=== PATIENT | female | born 1985 | race Hispanic/Latino ===

== ENCOUNTER 2020-05-25 01:18 | Inpatient (IN) | payer BC, SELFPAY ==
[2020-05-25] VITALS (13 sets, daily range): BP systolic 106–138; BP diastolic 62–88; PULSE 98–120; RESP 18–31; TEMP 36.1–37.4; O2SAT 88–98; BMI 39.5
--- NOTE | ~2020-05-25 | XR_ITS ---
EXAMINATION: XR chest 1V portable DATE: 05/25/2020 02:01 INDICATION: Asthma and pneumonia TECHNIQUE: frontal view of the chest was obtained. COMPARISON: Chest CT dated 08/17/2014 FINDINGS: Small lung volumes. Confluent airspace opacity in the right upper lobe concerning for pneumonia. Gary tional mild opacities at the bilateral lung bases could represent additional pneumonia or atelectasis . The cardiomediastinal silhouette is normal. Visualized bones and soft tissues are unremarkable. IMPRESSION: 1. Right upper lobe consolidation concerning for pneumonia. 2. Additional mild bibasilar opacities which could represent additional pneumonia or atelectasis. Reviewed, dictated and finalized at location A. IMPRESSION: 1. Right upper lobe consolidation concerning for pneumonia. 2. Additional mild bibasilar opacities which could represent additional pneumon ia or atelectasis.
--- NOTE | 2020-05-25 01:32 | ECG_ITS ---
Measurements Intervals [place] Rate: 112 P: 1 NV: 130 QRS: 16 QRSD: 76 T: 10 QT: 337 QTc: 462 Interpretive Statements SINUS TACHYCARDIA NONSPECIFIC T-WAVE ABNORMALITY- INF/LAT LEADS ABNORMAL ECG Electronically Signed On 05-25-2020 8:11:20 CDT by Steven Mcginnis D.O.
[2020-05-25 01:59] LABS: Basophils Percent Auto 0.2 % (0.2-1.2); Eosinophils Percent Auto 0.2 % (0-4.4); Hematocrit 46.3 % (37.0-47.0); Immature Granulocyte Absolute 0.02 K/mm3 (0.00-0.031); Immature Granulocyte Percent A 0.4 % (0-0.5); Lymphocytes Absolute Auto 1.42 K/mm3 (0.9-3.2); Lymphocytes Percent Auto 27.4 % (18.3-44.2); Mean Corpuscular HGB Conc 32.4 g/dl (32-36); Mean Corpuscular Hemoglobin 27.9 pg (26-34); Mean Corpuscular Volume 86.1 fl (80-100); Mean Platelet Volume 11.8 fl (7.4-10.4); Monocytes Absolute Auto 0.3 K/mm3 (0.1-0.6); Neutrophils Absolute Auto 3.5 K/mm3 (1.3-6.7); Neutrophils Percent Auto 66.8 % (45.5-73.1); Platelet Count Result 154 k/mm3 (150-375); Red Blood Count 5.38 M/mm3 (4.2-5.4); Red Cell Distribution Width 12.5 % (11.5-14.5); White Blood Count 5.2 K/mm3 (4.5-10.0)
--- NOTE | 2020-05-25 02:06 | ED.SOB ---
HPI - SOB/Dyspnea General Chief Complaint: Shortness of Breath/Dyspnea Stated Complaint: COVID +, SOB Time Seen by Provider: 05/25/20 01:40 Source: patient Mode of arrival: ambulatory Limitations: no limitations History of Present Illness HPI Narrative: This patient is a 34 year old female who presents for evaluation of cough and shortness of breath. Patient developed symptoms on Wednesday . She states she has had diarrhea, body aches, cough and low grade fever since Wednesday. She tested positive for COVID on Wednesday. Tonight her cough has continued to worsen. She was having sob when she tried to lay down to sleep. She has pain in her chest only when she coughs. Related Data Home Medications Medication Instructions Recorded Confirmed No Home Medications 05/25/20 05/25/20 Allergies Allergy/AdvReac Type Severity Reaction Status Date / Time No Known Allergies Allergy Verified 05/25/20 01:53 Review of Systems Review of Systems: All systems reviewed & are unremarkable except as noted in HPI and below Constitutional: Constitutional: Reports chills, Reports fever(s) and Reports weakness ENT: Denies sore throat Cardiovascular: Cardiovascular: Reports chest pain (from coughing) Respiratory: Respiratory: Reports cough, Reports dyspnea and Denies wheezing Gastrointestinal: Gastrointestinal: Denies abdominal pain, Reports diarrhea, Reports nausea and Denies vomiting Endocrine: Endocrine: Reports fatigue PMFSH Past Medical History Medical History (Updated 05/25/20 @ 03:33 by Sita Pulido MD) Asthma Social History Social History Smoking status: Never smoker Second hand tobacco smoke exposure: No Alcohol intake: current Drinks per week: 0 Substance use: never Substance use type: does not use Gender identity (if verbalized by the patient): Female Sexual Orientation (if Verbalized by the Patient): Straight or Heterosexual Spiritual care concerns: No Exam Const: General: no acute distress, alert and ill appearing acutely Orientation/consciousness: patient oriented x3 HENMT: Head: normocephalic and atraumatic Eyes: EOM: EOMs intact bilaterally Neck: Neck: normal visual inspection Chest: Chest palpation & inspection: normal inspection of the chest Resp: Effort & Inspection: normal respiratory effort Auscultation: clear to auscultation bilaterally and diminished lung sounds Cardio: Rate: tachycardic Rhythm: regular rhythm Heart sounds: no murmurs GI: GI Palp: Yes Soft to palpation, No Tenderness to palpation present (GI), No Guarding due to palpation present (GI) and No Rigid due to palpation Back/Spine/Pelvis: Back: no CVA tenderness Skin: General skin exam: normal color Rashes: no rashes Neuro: General: patient oriented x3 and moves all extremities Course Consultations Consultation #1: He is accepts patient for admission to the medical floor. Dr. Leal Date: 05/25/20 Vital Signs Vital signs: Vital Signs Temperature 98.1 F 05/25/20 01:22 Pulse Rate 120 H 05/25/20 01:22 Respiratory Rate 25 H 05/25/20 01:22 Blood Pressure 138/77 05/25/20 01:22 Pulse Oximetry 91 05/25/20 01:22 Temperature 98.9 F 05/25/20 04:00 Pulse Rate 101 H 05/25/20 04:00 Respiratory Rate 28 H 05/25/20 04:00 Blood Pressure 118/73 05/25/20 04:00 Pulse Oximetry 98 05/25/20 04:00 MDM - SOB/Dyspnea Lab Data Attestation: I reviewed the patient's lab results. Result diagrams: 05/25/20 01:48 05/25/20 01:48 Labs: Lab Results 05/25/20 05/25/20 05/25/20 Range/Units 01:48 01:48 01:48 WBC 5.2 (4.5-10.0) K/mm3 RBC 5.38 (4.2-5.4) M/mm3 Hgb 15.0 (12.0-15.0) g/dL Hct 46.3 (37.0-47.0) % MCV 86.1 (80-100) fl MCH 27.9 (26-34) pg MCHC 32.4 (32-36) g/dl RDW 12.5 (11.5-14.5) % Plt Count 154 (150-375) k/mm3 MPV 11.8 H (7.4-10.4) fl Immature Gran % (Auto) 0.4 (0-0.5) % Neut % (
[2020-05-25 02:08] LABS: INR 0.9; Partial Thromboplastin Time 30.8 SECONDS (22.3-36.8); Prothrombin Time 12.2 Seconds (11.1-14.7)
[2020-05-25 02:11] LABS: Alanine Aminotransferase 96 U/L (4-35); Albumin Level 4.3 g/dL (3.5-5.1); Alkaline Phosphatase 62 U/L (38-126); Aspartate Amino Transferase 93 U/L (14-36); Bilirubin,Total 0.6 mg/dL (0.2-1.3); D Dimer 0.44 ug/mL (<0.48); Magnesium 1.6 mg/dL (1.6-2.3)
[2020-05-25 02:12] LABS: Blood Urea Nitrogen 8 mg/dL (7-17); Calcium 8.3 mg/dL (8.4-10.2); Carbon Dioxide 28 mmol/L (22-30); Chloride 96 mmol/L (98-107); Estimated CRCL calculation 141 ml/min; Estimated Glomerular Filt Rate > 60; Glucose 147 mg/dL (65-105); Potassium 3.5 mmol/L (3.4-5.0); Sodium 134 mmol/L (137-145)
[2020-05-25 02:13] LABS: Lactate Dehydrogenase 804 U/L (313-618)
[2020-05-25 02:17] LABS: Alveolar/Arterial O2 Gradient 44.6 mmHg; Base Excess ABG 3.3 mEq/l (+/-2.0); Fractional Inspired Oxygen 21 %; HCO3 ABG 26.7 mEq/l (22.0-26.0); Methemoglobin ABG 0.2 %THb (0-1.5); Oxygen Content ABG 18.6 %vol (16.0-22.0); Oxygen Saturation ABG 93.1 % (95.0-100.0); Oxyhemoglobin 90.7 % THb (90.0-100.0); PCO2 ABG 36.8 mmHg (35.0-45.0); PO2 ABG 61.1 mmHg (80.0-100.0); PO2 FiO2 Ratio Arterial Blood 2.91 %; Reduced Hemoglobin 8.1 %THb (0-5.0); Total Hemoglobin 14.6 g/dL (12.0-18.0); pH ABG 7.478 (7.350-7.450)
[2020-05-25 02:20] LABS: Device ROOM AIR; Modified Allen's Test Pass; Site Drawn LEFT RADIAL
[2020-05-25 02:21] LABS: NT Pro B Type Natriuretic Pept 20 PG/ML (5-100)
--- NOTE | 2020-05-25 02:23 | PC.NURSE ---
Assumed care of pt at this time. Report from OMER Buenrostro
--- NOTE | 2020-05-25 04:16 | ADMGEN ---
This patient, Nelida Payne, was admitted to [facility] Surg Room 330-01. Patient/family oriented to hospital policies and general routines including ID bracelet, bed and alarms, visiting hours, pain management, procedures, bathroom and other care routines, personal items, smoking policy, room service/diet, and visiting hours. Valuables list has been completed. Information on how to activate the Rapid Response Team has been discussed. Patient/Family are encouraged to report perceived risks to care and to ask questions if they do not understand what they are told or what they should do.
[2020-05-25] MEDS: SODIUM CHLORIDE 0.9% IV 1,000 ML 125 ML IV CONT (04:35)
[2020-05-25] MEDS: guaiFENesin 12 HR 600 MG TABCR PO (09:47)
[2020-05-25] MEDS: ENOXAPARIN 40 MG/0.4 ML SYRINGE SUB-Q (09:47)
[2020-05-25 13:02] LABS: Basophils Percent Auto 0.3 % (0.2-1.2); Eosinophils Percent Auto 0.3 % (0-4.4); Hematocrit 43.6 % (37.0-47.0); Hemoglobin 14.1 g/dL (12.0-15.0); Immature Granulocyte Absolute 0.02 K/mm3 (0.00-0.031); Immature Granulocyte Percent A 0.5 % (0-0.5); Immature Platelet Fraction Pct 5.6 % (0.9-11.2); Lymphocytes Absolute Auto 1.53 K/mm3 (0.9-3.2); Lymphocytes Percent Auto 39.7 % (18.3-44.2); Mean Corpuscular HGB Conc 32.3 g/dl (32-36); Mean Corpuscular Hemoglobin 28.4 pg (26-34); Mean Corpuscular Volume 87.7 fl (80-100); Mean Platelet Volume 11.8 fl (7.4-10.4); Monocytes Absolute Auto 0.2 K/mm3 (0.1-0.6); Monocytes Percent Auto 5.2 % (2.6-8.5); Neutrophils Absolute Auto 2.1 K/mm3 (1.3-6.7); Platelet Count Result 145 k/mm3 (150-375); Red Blood Count 4.97 M/mm3 (4.2-5.4); Red Cell Distribution Width 12.7 % (11.5-14.5); White Blood Count 3.9 K/mm3 (4.5-10.0)
[2020-05-25 13:17] LABS: Creatine Kinase 496 U/L (30-135)
[2020-05-25 13:18] LABS: Lactate Dehydrogenase 778 U/L (313-618)
[2020-05-25 13:21] LABS: Alanine Aminotransferase 84 U/L (4-35); Albumin Level 3.8 g/dL (3.5-5.1); Alkaline Phosphatase 53 U/L (38-126); Aspartate Amino Transferase 86 U/L (14-36); Bilirubin,Total 0.5 mg/dL (0.2-1.3); Blood Urea Nitrogen 7 mg/dL (7-17); CRP 1.3 mg/dL (<1.0); Calcium 8.2 mg/dL (8.4-10.2); Carbon Dioxide 30 mmol/L (22-30); Chloride 100 mmol/L (98-107); Estimated CRCL calculation 125 ml/min; Estimated Glomerular Filt Rate > 60; Glucose 154 mg/dL (65-105); Magnesium 1.9 mg/dL (1.6-2.3); Potassium 3.6 mmol/L (3.4-5.0); Sodium 136 mmol/L (137-145)
[2020-05-25 14:19] LABS: Hepatitis B Surface Antigen Negative (Negative)
[2020-05-25 14:25] LABS: HAV RESULT Negative (Negative); Hepatitis B Core IgM Result Negative (Negative)
[2020-05-25 14:34] LABS: Vitamin D 25 Hydroxy 46.2 ng/mL
[2020-05-25 14:36] LABS: Hepatitis C Virus Antibody Negative (Negative)
--- NOTE | 2020-05-25 15:28 | PM.IMHP ---
H&P: HPI History of Present Illness Chief complaint: COVID, pneumonia Narrative: Nelida Payne is a 34 year old female with PMH significant for mild asthma and PCOS who presented to the emergency department for the evaluation of cough. She reports dyspnea only during her coughing episodes. She developed fever, diarrhea, nausea, myalgias, impaired sense of taste, and weakness last Wednesday (05/18/20). She tested positive for COVID Wednesday (05/20/20). 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 She reports that overall, her sx improved, however she developed a dry cough 3 days ago. The cough was worsening and she was having difficulty sleeping so she proceeded to the ED for further evaluation. She denies shortness of breath and chest pain. She denies nausea, vomiting, abdominal pain, and diarrhea. Her last fever was yesterday afternoon at 101.1F. Initial workup in the ED revealed WBC 5,200, Hb 15, Hct 46.3, platelets 154, ABG with pH 7.478, pCO2 36.8, pO2 61.1, and HCO3 26.7, sodium 134, potassium 3.5, chloride 96, CO2 28, BUN 8, Cr 0.5, glucose 147, lactic acid 1.0, magnesium 1.6, ferritin 1230, AST 93, ALT 96, ALP 62, LDH 804, BNP 20. EKG revealed sinus tachycardia and non-specific T wave abnormality in the inferior/lateral leads. CXR revealed right upper lobe consolidation and bibasilar opacities. Oxygen saturation was 91% so she was placed on 2L per nasal cannula and admitted to the hospitalist service. At the time of my evaluation, she reports that she is feeling fine. Her primary complaint is her dry cough. She also notes mild nausea but has no other complaints at this time. Overall, she is feeling better from when her symptoms began. Review of Systems Review of Systems: Narrative: Constitutional: Reports fever yesterday which has resolved today. Reports generalized fatigue. Reports lack of taste. Eyes: Denies vision change. No additional eye complaints. ENT: Denies change in hearing, nasal congestion, dysphagia, odynophagia, and sore throat. Cardiovascular: Denies palpitations and chest pain. Denies PND and orthopnea. Denies dyspnea on exertion. Respiratory: Reports dry cough. Denies shortness of breath. Gastrointestinal: Reports mild nausea. Denies nausea, vomiting, diarrhea, and constipation. Deneis melena and hematochezia. Genitourinary: Denies dysuria, frequency, urgency, and hesitancy. Musculoskeletal: Denies joint pain and swelling. Denies myalgias. Skin: Denies lesions and wounds. Neurologic: Denies focal weakness, paresthesias, confusion, and speech change. Psychiatric: Denies mood change. Denies anxiety and depression. Hematologic: Denies easy bruising and bleeding. All systems reviewed & are unremarkable except as noted in HPI and below PMFSH Past Medical History Medical History Asthma Polycystic kidney disease Surgical History Surgical History [place] teeth extracted Family History Family History (Updated 05/25/20 @ 16:52 by Elodia Menjivar PA-C) Father Hypertension Mother Hypertension Grandparent Family history of type 2 diabetes mellitus Cancer Other Family history of malignant neoplasm of breast Social History Social History (Updated 05/25/20 @ 16:55 by Elodia Menjivar PA-C) Social History: Mrs. Payne lives at home with her Facundo Payne. They live in [place], [place]. 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 She has a hx of infrequent alcohol use but has not consumed alcohol this year. She does not use any drugs. She wishes to be a full code and she has designated her Facundo Payne as her surrogate decision maker. Smoking status: Never smoker Second hand tobacco smoke exposure: No Alcohol intake: current Drinks per week: 0 Alcohol use details: She reports 1 drink/month previously but has not consumed alcohol i
[2020-05-26] VITALS (10 sets, daily range): BP systolic 111–121; BP diastolic 69–75; PULSE 88–119; RESP 18–20; TEMP 36.3–36.7; O2SAT 87–94
[2020-05-26 06:07] LABS: Basophils Percent Auto 0.4 % (0.2-1.2); Eosinophils Percent Auto 0.6 % (0-4.4); Hematocrit 42.1 % (37.0-47.0); Hemoglobin 13.5 g/dL (12.0-15.0); Immature Granulocyte Absolute 0.03 K/mm3 (0.00-0.031); Immature Granulocyte Percent A 0.6 % (0-0.5); Lymphocytes Absolute Auto 1.86 K/mm3 (0.9-3.2); Lymphocytes Percent Auto 36.3 % (18.3-44.2); Mean Corpuscular HGB Conc 32.1 g/dl (32-36); Mean Corpuscular Hemoglobin 28.2 pg (26-34); Mean Corpuscular Volume 87.9 fl (80-100); Mean Platelet Volume 11.6 fl (7.4-10.4); Monocytes Absolute Auto 0.4 K/mm3 (0.1-0.6); Neutrophils Absolute Auto 2.8 K/mm3 (1.3-6.7); Neutrophils Percent Auto 55.1 % (45.5-73.1); Platelet Count Result 148 k/mm3 (150-375); Red Blood Count 4.79 M/mm3 (4.2-5.4); Red Cell Distribution Width 12.7 % (11.5-14.5); White Blood Count 5.1 K/mm3 (4.5-10.0)
[2020-05-26 06:18] LABS: Alanine Aminotransferase 91 U/L (4-35); Albumin Level 3.8 g/dL (3.5-5.1); Alkaline Phosphatase 58 U/L (38-126); Aspartate Amino Transferase 82 U/L (14-36); Bilirubin,Total 0.7 mg/dL (0.2-1.3); Blood Urea Nitrogen 7 mg/dL (7-17); Calcium 8.1 mg/dL (8.4-10.2); Carbon Dioxide 31 mmol/L (22-30); Chloride 97 mmol/L (98-107); Estimated CRCL calculation 125 ml/min; Estimated Glomerular Filt Rate > 60; Glucose 150 mg/dL (65-105); Potassium 3.7 mmol/L (3.4-5.0); Sodium 134 mmol/L (137-145)
[2020-05-26 07:50] LABS: Creatine Kinase 648 U/L (30-135)
[2020-05-26 07:58] LABS: CRP 1.3 mg/dL (<1.0)
[2020-05-26] MEDS: ENOXAPARIN 40 MG/0.4 ML SYRINGE SUB-Q (08:42)
[2020-05-26 08:50] LABS: Lactate Dehydrogenase 791 U/L (313-618)
--- NOTE | 2020-05-26 14:43 | HOMEO2EVAL ---
Home Oxygen Evaluation RC: Home Oxygen (O2) Evaluation Start: 05/26/20 11:36 Freq: ONCE Status: Active Protocol: RPE Activity Type Activity Date Activity User E-Sign Co-Sign Detail Recorded Client Recorded Date Recorded By Document 05/26/20 14:20 [email or web address] [email or web address] 05/26/20 14:43 KRM Document 05/26/20 14:22 [email or web address] [email or web address] 05/26/20 14:43 KRM Document 05/26/20 14:24 [email or web address] [email or web address] 05/26/20 14:43 KRM Document 05/26/20 14:26 [email or web address] [email or web address] 05/26/20 14:43 KRM Document 05/26/20 14:32 [email or web address] [email or web address] 05/26/20 14:43 KRM 05/26/20 05/26/20 05/26/20 14:20 14:22 14:24 Home O2 Evaluation Test Phase Resting Exercise Exercise Oxygen Delivery Room Air Room Air Nasal Cannula Oxygen Flow Rate (L/min) 1 Pulse Oximetry (90-100 %) 90 87 L 89 L Pulse Rate (60-100 beats/min) 91 119 H 101 H Activity Tolerance Good Good Ambulation Distance (feet) Home Oxygen Evaluation Comments Treatment Charges O2 Evaluation 05/26/20 05/26/20 14:26 14:32 Home O2 Evaluation Test Phase Exercise Resting Oxygen Delivery Nasal Cannula Room Air Oxygen Flow Rate (L/min) 2 Pulse Oximetry (90-100 %) 91 92 Pulse Rate (60-100 beats/min) 102 H 90 Activity Tolerance Good Ambulation Distance (feet) 50 Home Oxygen Evaluation Comments 2 LPM WITH ACTIVITY. Treatment Charges
--- NOTE | 2020-05-26 14:45 | PCRCNOTE ---
HOME O2 EVALUATION COMPLETE. PT. REQUIRES 2LPM WITH ACTIVITY. PT. [facility].
--- NOTE | 2020-05-26 15:26 | PM.DS ---
DS: Admitting Diagnosis Admitting Diagnosis Admitting Diagnosis: Acute respiratory failure with hypoxia DS: Discharge Diagnosis Discharge Diagnosis (1) Acute respiratory failure with hypoxia: Code(s): J96.01 - Acute respiratory failure with hypoxia Status: Acute (2) COVID-19: Code(s): U07.1 - COVID-19 Status: Acute (3) Pneumonia: Code(s): J18.9 - Pneumonia, unspecified organism Status: Acute (4) Elevated fasting blood sugar: Code(s): R73.01 - Impaired fasting glucose Status: Acute Assessment and Plan: Fasting blood sugar was 154. Hemoglobin A1c was 7.0. She will need to implement lifestyle modification and follow-up with her PCP to discuss pharmacotherapy. DS: Summary Hospital Course Reason for hospitalization: Cough, dyspnea, COVID-19 Hospital Course: Nelida Payne is a 34 year old female with PMH significant for mild asthma and PCOS who tested positive for COVID-19 05/20/20 who presented to the emergency department for the evaluation of cough and dyspnea during her coughing episodes. She reported the onset of fever, diarrhea, nausea, myalgias, impaired sense of taste, and weakness on 05/18/20. Those sx were improving but she reported a dry cough for three days. The cough was worsening and she was having difficulty sleeping so she proceeded to the ED for further evaluation. Initial workup in the ED revealed WBC 5,200, Hb 15, Hct 46.3, platelets 154, ABG with pH 7.478, pCO2 36.8, pO2 61.1, and HCO3 26.7, sodium 134, potassium 3.5, chloride 96, CO2 28, BUN 8, Cr 0.5, glucose 147, lactic acid 1.0, magnesium 1.6, ferritin 1230, AST 93, ALT 96, ALP 62, LDH 804, BNP 20. EKG revealed sinus tachycardia and non-specific T wave abnormality in the inferior/lateral leads. CXR revealed right upper lobe consolidation and bibasilar opacities. Oxygen saturation was 91% so she was placed on 2L per nasal cannula and admitted to the hospitalist service. She was treated with supportive care. She weaned to room air at rest. Her symptoms improved and she requested to go home. A home oxygen evaluation was performed which indicated that she required 2 liters per nasal cannula with exertion. She was discharged with home oxygen and advised to schedule a follow-up visit with primary care within 1 week. Fasting glucose was elevated so hemoglobin A1c was ordered and was elevated at 7. She will need to implement lifestyle interventions and follow-up with her PCP to discuss pharmacotherapy. She was discharged in stable condition on the afternoon of 05/26/20. She was advised to return to the ED for worsening symptoms. Status at Discharge Functional status at discharge: independent ambulation Overall status at discharge: patient is progressing back to baseline Time Spent with Patient Time attestation: Total time spent providing and/or coordinating discharge services: 35 minutes Exam Narrative: Exam Narrative: General: Pleasant, obese, and well-developed 34 y.o. female sitting in bed in no acute distress. HEENT: Normocephalic and atraumatic. Conjunctivae and lids normal. EOMI. Moist mucous membranes. Neck: Large neck circumference. Supple without lymphadenopathy or masses. Cardiac: Regular rate and rhythm. S1 and S2 normal. Telemetry reviewed from 05/26/20 with sinus rhythm. Lungs: On room air and comfortable. Respirations are non-labored. She is speaking in full sentences without difficulty. Breath sounds are diminished bilaterally. Abdomen: Normoactive bowel sounds. Soft, non-distended, and non-tender. Extremities: No lower extremity edema. Johnny sign negative. Neurological: Alert and oriented x3. Exam non-focal to casual conversation. Speech clear. Skin: Warm and dry. Psychiatric: Judgment and insight intact. Mood and affect appropriate. DS: Data Data Completed and Pending Labs on day of discharge: Labs from last 24 hours 05/26/20 05/26/20 05/26/20 07:57 07:52 05:58 WBC RBC Hgb Hc
[2020-05-27 20:45] LABS: SARS-CoV-2 RNA PCR Positive
== END 2020-05-26 16:00 | disposition home or self-care (01) | DRG 177 ==
LOC: ANHED 03:00 → ANH3MEDSUR 03:02
PROVIDERS: Physician Assistant; Admitting Provider Family Medicine; Emergency Provider General Practice; Visit Provider Family Medicine
DX: U07.1 COVID-19 (principal); J12.89 Other viral pneumonia; J96.01 Acute respiratory failure with hypoxia; Q61.3 Polycystic kidney, unspecified; R73.01 Impaired fasting glucose; J45.909 Unspecified asthma, uncomplicated; E66.9 Obesity, unspecified; Z68.39 Body mass index [BMI] 39.0-39.9, adult
CPT/HCPCS: 36415; 36600; 71045; 80048; 80053; 80074; 80076; 82306; 82375; 82550; 82728; 82805; 83036; 83050; 83605; 83615; 83735; 83880; 85025; 85055; 85380; 85610; 85730; 86140; 87040; 87635; 93005; 94618; 96365; 96367; 99285; A9270; C9803; J0456; J0696; J1650; J7030; U0003

== ENCOUNTER 2023-03-05 14:39 | Emergency (ER) | payer OTHER, SELFPAY ==
--- NOTE | ~2023-03-05 | XR_ITS ---
EXAMINATION: XR chest 2V DATE: 03/05/2023 15:31 INDICATION: Cough and congestion. TECHNIQUE: Frontal and lateral views of the chest were obtained. COMPARISON: Chest single view 05/25/2020, chest CT 08/17/2014 FINDINGS: There are airspace opacities in left lower lobe. No pleural effusion or pneumothorax. The h eart size is normal. IMPRESSION: 1. Airspace opacities in left lower lobe, consistent with pneumonia. Reviewed, dictated and finalized at location A.
--- NOTE | 2023-03-05 15:11 | ED.URI ---
HPI - URI/Sore Throat General Chief Complaint: Upper Respiratory Infection Stated Complaint: cold symptoms,chest congestion Time Seen by Provider: 03/05/23 15:09 Source: patient Mode of arrival: ambulatory Limitations: no limitations History of Present Illness HPI Narrative: Nelida is a 37-year-old female patient presenting to the clinic today with complaints of nasal congestion, cough, wheezing, and chest congestion. She reports that she has had symptoms for 3 days. She denies any fever or chills. States she is having some mild shortness of breath. Cough is nonproductive at this time. Has had low-grade fever of 99? F per patient. History of pneumonia and asthma. MD elicited complaint: sore throat and nasal congestion Related Data Allergies Allergy/AdvReac Type Severity Reaction Status Date / Time No Known Allergies Allergy Verified 03/05/23 15:26 Review of Systems Review of Systems: Pertinent positives per HPI. Patient denies any chills, rash, headache, visual changes, dizziness, chest pain, palpitations, nausea, vomiting, diarrhea, constipation, abdominal pain, or any urinary issues. [facility] Past Medical History Medical History (Updated 03/05/23 @ 15:49 by Raheem Cadena, TRAVEL CONSULTANT) Asthma Polycystic kidney disease Surgical History Surgical History [place] teeth extracted Family History Family History (Updated 05/25/20 @ 16:52 by Elodia Menjivar, FLAQUITO) Father Hypertension Mother Hypertension Grandparent Family history of type 2 diabetes mellitus Cancer Other Family history of malignant neoplasm of breast Social History Social History (Updated 05/25/20 @ 16:55 by Elodia Menjivar, FLAQUITO) Social History: Mrs. Payne lives at home with her Facundo Payne. They live in [place], [place]. 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 She has a hx of infrequent alcohol use but has not consumed alcohol this year. She does not use any drugs. She wishes to be a full code and she has designated her Facundo Payne as her surrogate decision maker. Smoking status: Never smoker Second hand tobacco smoke exposure: No Alcohol intake: current Drinks per week: 0 Alcohol use details: She reports 1 drink/month previously but has not consumed alcohol in 2019. 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 There is no relevant family history pertinent to the patient complaint. Exam Narrative: General: Well-developed, well nourished, in no apparent distress Head: Normocephalic, atraumatic Eyes: Pupils equally round and reactive to light bilaterally, EOM intact, sclera and conjunctive clear, no discharge, lids normal Ears: TMs intact and clear, ear canals clear, no drainage, grossly hearing normal. Nose: Nares patent, no discharge, no inflammation, no sinus tenderness. Mouth: Oral pharynx without lesions or masses, good dentition, MMM. Neck: Supple, trachea midline, no enlargement of anterior or posterior cervical nodes, no thyroid masses or goiter palpable. Cardio: Regular rate and rhythm, s1 and s2 normal, no murmur appreciated. Resp: Lung sounds diminished with faint crackles in the posterior lower lobes, no rhonchi, rales, wheezing or rubs Course Course Emergency Course: Portions of this record may have been created with voice recognition software. Level of Care: Express Care Visit Vital Signs Vital signs: Vital Signs Temperature 37.2 C 03/05/23 15:30 Pulse Rate 96 03/05/23 15:30 Res
[2023-03-05 15:30] VITALS: BP 142/97; PULSE 96; RESP 18; TEMP 37.2; O2SAT 97
== END 2023-03-05 16:00 | disposition home or self-care (01) ==
PROVIDERS: Emergency Provider Nurse Practitioner Family; PCP Nurse Practitioner Family
DX: J18.1 Lobar pneumonia, unspecified organism (principal); J45.909 Unspecified asthma, uncomplicated; Q61.3 Polycystic kidney, unspecified
CPT/HCPCS: 71046; 99213; G0463

== ENCOUNTER 2023-03-21 13:06 | Outpatient (CLI) | payer OTHER, SELFPAY ==
--- NOTE | ~2023-03-21 | XR_ITS ---
EXAMINATION: XR chest 2V DATE: 03/21/2023 13:22 INDICATION: Pneumonia. TECHNIQUE: Frontal and lateral views of the chest were obtained. COMPARISON: Chest 2 views 03/05/2023, chest CT 08/17/2014 FINDINGS: The chest demonstrates clear lungs without pneumonia, pleural effusion, or pneumothorax. Th e heart size is normal. IMPRESSION: 1. No acute cardiopulmonary disease. Reviewed, dictated and finalized at location A.
== END 2023-03-21 13:07 | disposition home or self-care (01) ==
PROVIDERS: PCP Nurse Practitioner Family; Visit Provider Nurse Practitioner Family
DX: Z87.01 Personal history of pneumonia (recurrent) (principal)
CPT/HCPCS: 71046

== ENCOUNTER 2024-08-22 11:24 | Emergency (ER) | payer OTHER, SELFPAY ==
--- NOTE | ~2024-08-22 | XR_ITS ---
XR chest 2V Ordering provider: Alejandra Weinstein APRN History: 38 years Female with . cough for about 1 week,never smoker . Comparison: March 21, 2023 FINDINGS: MEDIASTINUM: The cardiac silhouette is not enlarged. LUNGS: No infiltrates, effusions or pneumothorax. Prominent markings bilaterally. Early or resolving pneumonia is not excluded. OTHER: No free air under the diaphragm. IMPRESSION: Prominent markings in the lower lobes. Early or resolving pneumonia is not excluded. Reviewed, dictated and finalized at location A. IMPRESSION: Prominent markings in the lower lobes. Early or resolving pneumonia is not excl uded.
[2024-08-22 11:44] VITALS: BP 134/89; PULSE 79; RESP 18; TEMP 36.4; O2SAT 100
--- NOTE | 2024-08-22 11:58 | ED.URI ---
HPI - URI/Sore Throat General Chief Complaint: Upper Respiratory Infection Stated Complaint: Cough Time Seen by Provider: 08/22/24 11:58 Source: patient Mode of arrival: ambulatory Limitations: no limitations History of Present Illness HPI Narrative: 38-year-old female presented for complaint of cough for 1 week. Over last 3 days the chest congestion has worsened; cough is worse at night. Reports hearing wheezing intermittently. Denies nasal congestion, shortness of breath, nausea, vomiting diarrhea, lethargy, fevers or chills. Taking natural cough syrup for symptoms at night. Hx pneumonia. Related Data Home Medications Medication Instructions Recorded Confirmed tirzepatide 5 mg/0.5 mL 5 mg subcut DIRECTED 08/22/24 08/22/24 subcutaneous pen injector (Johanna) Allergies Allergy/AdvReac Type Severity Reaction Status Date / Time No Known Allergies Allergy Verified 03/05/23 15:26 Review of Systems Review of Systems: CONSTITUTIONAL: Denies body aches, fever, chills, or sweats. EYES: Denies visual changes, redness, or discharge. ENT: Denies rhinorrhea, congestion, sore throat, or otalgia. CARDIOVASCULAR: Denies chest pain, palpitations, or edema. RESPIRATORY: Reports cough, denies sob GASTROINTESTINAL: Denies abdominal pain, nausea, vomiting, or diarrhea. SKIN: Denies rash. MUSCULOSKELETAL: Denies back pain, joint pain, or myalgia. NEUROLOGIC: Denies headache All systems reviewed & are unremarkable except as noted in HPI and below PMFSH Past Medical History Medical History (Updated 08/22/24 @ 12:43 by Alejandra Weinstein APRN) Asthma Polycystic kidney disease Surgical History Surgical History [place] teeth extracted Family History Family History Father Hypertension Mother Hypertension Grandparent Family history of type 2 diabetes mellitus Cancer Other Family history of malignant neoplasm of breast Social History Social History Social History: Mrs. Payne lives at home with her Facundo Payne. They live in [place], [place]. 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 She has a hx of infrequent alcohol use but has not consumed alcohol this year. She does not use any drugs. She wishes to be a full code and she has designated her Facundo Payne as her surrogate decision maker. Smoking status: Never smoker Second hand tobacco smoke exposure: No Alcohol intake: current Drinks per week: 0 Alcohol use details: She reports 1 drink/month previously but has not consumed alcohol in 2019. Substance use: never Substance use type: does not use Living arrangements: with family Occupation/Education: occupation Additional occupation/education comments: [employer] Gender identity (if verbalized by the patient): Female Sexual Orientation (if Verbalized by the Patient): Straight or Heterosexual Spiritual care concerns: No Comments At time of signature, I have reviewed and agree with nursing past medical, surgical, social and family history unless otherwise noted. Please see nursing chart for further information. There is no relevant family history pertinent to the presenting complaint Exam Narrative: GENERAL: Well-appearing, in no acute distress. EYES: EOMI. No redness or drainage. Conjunctivae normal. ENT: Mucous membranes pink and moist. No rhinorrhea. TMs normal bilaterally. Throat normal. Uvula midline. NECK: Normal AROM. Supple. CHEST: No respiratory distress. Lungs clear to all lomas. HEART: Regular rate and rhythm. No murmur appreciated. ABDOMEN: Soft, nondistended, normal active bowel sounds. SKIN: Warm, dry, no rash. Capillary refill normal. Normal skin turgor. NEURO: Alert and oriented x3. Gait steady. PSYCH: Normal affect. Course Course Emergency Course: Patient is aware of tiarra
== END 2024-08-22 12:53 | disposition home or self-care (01) ==
PROVIDERS: Emergency Provider Nurse Practitioner Family; PCP Nurse Practitioner Family
DX: J18.1 Lobar pneumonia, unspecified organism (principal); J45.909 Unspecified asthma, uncomplicated; Q61.3 Polycystic kidney, unspecified
CPT/HCPCS: 71046; 99213; G0463

== ENCOUNTER 2024-12-31 15:54 | Emergency (ER) | payer OTHER, SELFPAY ==
--- NOTE | ~2024-12-31 | XR_ITS ---
CHEST RADIOGRAPH, PA AND LATERAL CLINICAL HISTORY: CHEST CONGESTION AND TIGHTNESS . COMPARISON: 08/22/2024 TECHNIQUE: PA and lateral views of the chest. FINDINGS The cardiomediastinal silhouette is unremarkable. The lungs are clear. Visualized osseous structures and soft tissues are unremarkable. IMPRESSION: No focal infiltrate or effusion. Reviewed, dictated and finalized at location A. CE ENGINEER
--- OUTSIDE RECORDS SUMMARY | 2024-12-31 15:56 | XMS_ITS | Data Portability ---
Author Organization [place] [facility] [email or web address], Main Office Address [address] [place] [address] Assessment Encounter Date Assessment Date Assessment LastModified by Organization Details LastModified Time 03/24/2023 03/24/2023 [employer]- [employer] GLASS SANDER- Sabine Call office if worse, ER if life threatening illness RTC 6 months She voices understanding of plan and agrees [email or web address] Not available 03/24/2023 13:13:31 09/29/2023 09/29/2023 [employer]- [employer] SANDER- Sabine Call office if worse, ER if life threatening illness RTC 6 months She voices understanding of plan and agrees [email or web address] Not available 09/29/2023 10:56:16 Plan of Treatment Reminders Order Date Submit Date Provider Last Modified By Organization Details Last Modified Time Details Appointments None recorded. Lab insulin, serum 2022 023 [facility], [address], [place], [address], 17:44:29 TSH + free T4, serum 2022 023 [facility], [address], [place], [address], 3 17:44:29 iron + TIBC + ferritin, serum 2022 023 [facility], [address], [place], [address], 3 17:44:29 lipid panel, serum 2022 023 [email or web address] [facility], [address], [place], [address], 3 17:44:29 CMP, serum or plasma 2022 023 [email or web address] [facility], [address], [place], [address], 3 17:44:29 CBC w/ auto diff 2022 023 janes [facility], [address], [place], [address], 3 17:44:29 vitamin B12 + folate, serum or blood 2022 023 janes Buchanan, [address], [place], [address], 3 17:44:30 vitamin D, 25-hydroxy , total, serum 2022 023 janes Walden, [address], [place], [address], 3 17:44:29 HbA1c (hemoglobi n A1c), blood 2022 023 janes Buchanan, [address], [place], [address], 3 17:44:28 microalbum in/creatin ine, mass ratio, urine 2022 023 janes Buchanan, [address], [place], [address], 3 17:44:28 vitamin B12 + folate, serum or blood 2022 023 [email or web address] [facility], [address], [place], [address], 4 08:35:39 iron + TIBC + ferritin, serum 2022 023 [email or web address] [facility], [address], [place], [address], 4 08:35:39 vitamin D, 25-hydroxy , total, serum 2022 023 [email or web address] [facility], [address], [place], [address], 4 08:35:39 lipid panel, serum 2022 023 [email or web address] [facility], [address], [place], [address], 4 08:35:39 HbA1c (hemoglobi n A1c), blood 2022 023 [email or web address] [facility], [address], [place], [address], 4 08:35:38 microalbum in/creatin ine, mass ratio, urine 2022 023 [email or web address] [facility], [address], [place], [address], 4 08:35:38 CBC w/ auto diff 2022 023 [email or web address] [facility], [address], [place], [address], 4 08:35:39 CMP, serum or plasma 2022 023 [email or web address] [facility], [address], [place], [address], 4 08:35:39 vitamin B12 + folate, serum or blood 2023 024 [facility]a [facility], [address], [place], [address], 4 07:49:15 vitamin D, 25-hydroxy , total, serum 2023 024 iris Buchanan, [address], [place], [address], 4 07:49:14 HbA1c (hemoglobi n A1c), blood 2023 024 iris Buchanan, [address], [place], [address], 4 07:49:14 CBC w/ auto diff 2023 024 SARITHA Buchanan, [address], [place], [address], 4 16:25:32 lipid panel, serum 2023 024 iris Buchanan, [address], [place], [address], 4 07:49:15 CMP, serum or plasma 2023 024 SARITHA Buchanan, [address], [place], [address], 4 16:25:32 insulin, serum 2023 024 iris Buchanan, [address], [place], [address], 4 07:49:14 Hepatitis C IgG Ab, qual, serum 2023 024 iris Buchanan, [address], [place], [address], 4 07:49:15 HbA1c (hemoglobi n A1c), blood 2024 025 [facility], [address], [place], [address], 5 07:27:48 vitamin D, 25-hydroxy , total, serum 2024 025 [facility], [address], [place], [address], 5 07:27:48 cobalamin and folate panel, serum 2024 025 [facility], [address], [place], [address], 5 07:27:49 TSH + free T4, serum 2024 025 [facility], [address], [place], [address], 5 07:27:49 Referral otolaryngo logist referral 2022 023 [email or web address] José Luis Duran, [address] [facility], [place], [address], 4 08:35:50 merchandising lead referral - Needs diabetic foot exam 2023 024 [email or web address] Drake Thakkar DPM, [address], [place], [address], 5 15:37:[address] referral 2023 024 [email or web address] [place], [facility] [address], [place], [address], 5 15:37:24 Procedures None recorded. Surgeries None recorded. Imaging MAMMO, screening, digital, bilateral 2023 024 [email or web address] [facility], [address], [place], [address], 09:50:50 Medication Orders Mounjaro 7.5 mg/0.5 mL subcutaneo us pen injector 2022 023 [email or web address] [id number], [address] [facility], [place], [place], [id number], 09:07:39 Patient TargetsNo targets recorded. Patient Instructions Encounter Date Encounter Id Patient Instructions Last Modified By Organization Details Last Modified Time 03/24/2023 [id number] INFLUENZA VACCIN E TD/TDAP Recommended today, patient declined Ordered P atient will get at local pharmacy/health department MAMMOGRAM Recommended today, but patient declined Ordered N o screening indicated at this time/ no family history CERVICAL SCREENING/PELVIC EXAMINATION No screening necessary patient is up to date COLORECTAL SCREENING Recommended today, but patient declined Ordered C olonoscopy declined. Cologuard ordered No screening necessary until age 45 DEPRESSION SCREENING Negative BMI Overweight Appropr iate Underweight O besity Continue healthy eating & exercise NUTRITION Continue healthy eating & exercise PHYSICAL ACTIVITY Need more activity Recommendation of 10-20 minutes of activity that causes mild breathlessness daily Recommendati on of 30 minutes of daily activity VISION Ordered Recommende d today ALCOHOL USE No alcohol use Occasional/Soc ial Use TOBACCO USE non smoker SEXUALLY ACTIVE Yes, Patient is in monogamous relationship GLUCOSE SCREENING Known Diabetic LIPID SCREENING Ordered [email or web address] Not available 03/24/2023 13:12:28 06/21/2024 [id number] diabetic eye exam* [email or web address] Not availa ble 12/18/2024 07:38:31 Follow up in 3 months Obtain labs Tests: Mammogram Referral: Podiatry-diabetic foot exam [employer] vision-diabetic eye exam 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 Recommend: Tetanus vaccine Not available 06/21/2024 09:07:13 12/20/2024 [id number] diabetic eye exam* ATHENAFAX Not availa ble 12/21/2024 07:45:30 Follow up in 6 months Obtain labs Tests: Complete mammogram Complete well woman exam Referral: Recommend: Not available 12/20/2024 11:35:56 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 for 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 fo r Chronic sinusitis Referring Physician: Humaira Peng, Internal Medicine, Encounter Date: 09/29/2023 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 [address] [place] [address], [address], 03/09/2023 14:02:05 03/22/20 23 03/21/2023 XR, chest , 2 view No observ ation record ed. [address] [facility], [place], [address], 03/22/2023 14:19:24 03/22/2003/21/2023 XR, chest , 2 view No observ ation record ed. [address] [place] [address], [address], 03/23/2023 16:18:15 Result Notes None recorded. Problems Name Problem SNOMED Code Status Onset Date Resolution Date Notes Provider Name and Address Organization Details Recorded Time Type 2 diabetes mellitus without complication 622287383 Active 2022 Terra Jiménez APRN [address], [address], [place], [address], [place] [facility] [email or web address] 09:52:21 Insulin resistance 219549365 Active 2022 Terra Jiménez APRN [address], [address], [place], [address], [employer] 4 09:52:31 Vitamin D deficiency 05049258 Active 2022 Terra Jiménez APRN [address], [address], [place], [address], [employer] [facility] [place] [employer] 4 09:52:27 Obesity 024588300 Active 2022 Terra Jiménez APRN [address], [address], [place], [address], [employer] 4 09:52:34 Polycystic ovary syndrome 843958740 Active 2022 Terra Jiménez APRN [address], [address], [place], [address], [employer] 4 09:52:41 Iron deficiency 50103083 Active 2022 Terra Jiménez APRN [address], [address], [place], [address], [employer] 4 09:52:28 Vitamin B12 deficiency (non anemic) 26769193 Active 2022 Terra Jiménez APRN [address], [address], [place], [address], [employer] 4 09:52:24 Weight gain 9108648 Active 2022 MISSAEL Mccall [address], [address], [place], [address], [employer] [facility] [place] [employer] 3 11:41:50 Stomach cramps 83193440 Active 2022 MISSAEL Mccall [address], [address], [place], [address], [employer] [facility] [place] [employer] 3 13:09:42 Chronic sinusitis 08887220 Active 2022 MISSAEL Mccall [address], [address], [place], [address], [place] [facility] [employer] [facility] 3 11:05:27 Breast lump 39314524 Active 2022 MISSAEL Mccall [address] [facility] [facility] [address], [place], [address], [facility] [employer] [facility] 3 13:11:28 Fatigue 06682019 Active 2024 Terra Jiménez APRN [address], [facility] [address], [place], [address], [facility] [employer] [facility] 5 11:29:07 Problem Notes None recorded. Procedures Surgical History Date Name Laterality Status Provider Name and Address Organization Details Recorded Time extraction of wisdom tooth completed Not Available [facility] 01/20/2023 22:41:10 laparoscopic sleeve gastrectomy completed Not Available [facility] 01/20/2023 22:41:10 Imaging Results Imaging Date Name Status LastModified by Organiz ation Details LastModified Time 03/05/2023 XR, chest, 2 view completed [address], [address], 03/09/2023 14:02:05 03/21/2023 XR, chest, 2 view completed [address], [address], 03/22/2023 14:19:24 03/21/2023 XR, chest, 2 view completed [address], [address], 03/23/2023 16:18:15 Procedure Notes None recorded. Medical Equipment None Reported. Allergies No known drug allergies Medications Name Sig Start Date Stop Date Status Note LastModified by Organization Details LastModified Time azithromyci n 250 mg tablet 03/24 completed Not Available Not Available Not Available benzonatate 200 mg capsule TAKE 1 CAPSULE BY MOUTH THREE TIMES DAILY NEEDED FOR COUGH 12/20 completed Not Available Not Available Not Available clobetasol 0.05 % topical cream APPLY A THIN LAYER TO THE AFFECTED AREA TWICE DAILY FOR 7 DAYS 03/24 completed Not Available Not Available Not Available Vitamin C 1,000 mg tablet Take as needed by oral route. active Not Available Not Available No t Available cephalexin 500 mg capsule Take 1 capsule every 6 hours by oral route for 7 days. 03/24 completed Not Available Not Available Not Available ergocalcife rol (vitamin D2) 1,250 mcg (50,000 unit) capsule 03/24 completed Not Available Not Available Not Available methylpredn isolone 4 mg tablets in a dose pack FOLLOW PACKAGE DIRECTION S 12/11 completed Not Available Not Available Not Available albuterol sulfate HFA 90 mcg/actuati on aerosol inhaler INHALE 2 PUFFS BY MOUTH EVERY 4 TO 6 HOURS NEEDED FOR SHORTNESS OF BREATH OR WHEEZING active Not Available Not Available No t Available metformin ER 500 mg tablet,exte nded release 24 hr Take 1 tablet every day by oral route. 09/29 completed Not Available Not Available Not Available doxycycline hyclate 100 mg tablet TAKE 1 TABLET BY MOUTH TWICE DAILY FOR 7 DAYS 12/11 completed Not Available Not Available Not Available amoxicillin 875 mg-potassiu m clavulanate 125 mg tablet TAKE 1 TABLET BY MOUTH EVERY 12 HOURS FOR 7 DAYS 03/24 completed Not Available Not Available Not Available hydrocodone 7.5 mg-acetamin ophen 325 mg/15 mL oral solution 06/04 completed Not Available Not Available Not Available magnesium active Not Available Not Ana ilable Not Available Vitamin D3 active Not Available Not Av ailable Not Available multivitami n 03/24 completed Not Available Not Available Not Available Calcium + D 03/24 completed Not Available Not Available Not Available Vitamin B12 active Not Available Not A vailable Not Available alpha lipoic acid 09/29 completed Not Available Not Available Not Available Virtussin AC 10 mg-100 mg/5 mL oral liquid TK 10 ML PO Q 4 H PRN 03/18 completed Not Available Not Available Not Available Trulicity 0.75 mg/0.5 mL subcutaneou s pen injector ADMINISTE R 0.75 MG UNDER THE SKIN EVERY WEEK 03/24 completed Not Available Not Available Not Available Vitamin B12 03/24 completed Not Available Not Available Not Available ID NOW COVID-19 Test Kit TEST DIRECTED TODAY 04/09 completed Not Available Not Available Not Available Mounjaro 7.5 mg/0.5 mL subcutaneou s pen injector ADMINISTE R 7.5 MG UNDER THE SKIN 1 TIME A WEEK active Not Available Not Available No t Available Mounjaro 5 mg/0.5 mL subcutaneou s pen injector ADMINISTE R 5 MG UNDER THE SKIN EVERY WEEK 11/28 completed Not Available Not Available Not Available Mounjaro 2.5 mg/0.5 mL subcutaneou s pen injector ADMINISTE R 2.5 MG UNDER THE SKIN EVERY WEEK FOR DIABETES 11/28 completed Not Available Not Available Not Available Vitals Date Recorded Body mass index (BMI) Body height Oxygen saturation Oxygen saturation in Arterial blood by Pulse oximetry Heart rate Body temperature Body weight Systolic blood pressure Diastolic blood pressure Provider Name and Address Organization Details Last Updated DateTime 3 34.5 kg/m2 159.39 cm 99 % 99 % 73 /min 97.4 [degF] 01652.3 3 g 132 mm[Hg] 82 mm[Hg] Not Available [facility] 3 22:41:14 Date Recorded Body height Body mass index (BMI) Body weight Body temperature Heart rate Oxygen saturation Oxygen saturation in Arterial blood by Pulse oximetry Systolic blood pressure Diastolic blood pressure Provider Name and Address Organization Details Last Updated DateTime 3 159.39 cm 36.2 kg/m2 62332.2 5 g 97 [degF] 82 /min 98 % 98 % 128 mm[Hg] 82 mm[Hg] LIAT Loving AL [employer] [facility] [email or web address] 3 11:23:37 Date Recorded Body height Body mass index (BMI) Body weight Body temperature Heart rate Oxygen saturation Oxygen saturation in Arterial blood by Pulse oximetry Systolic blood pressure Diastolic blood pressure Provider Name and Address Organization Details Last Updated DateTime 3 159.39 cm 35 kg/m2 55661.1 g 98 [degF] 74 /min 98 % 98 % 130 mm[Hg] 78 mm[Hg] Keli Blancas MA [employer] 3 10:52:53 Date Recorded Body height Body mass index (BMI) Body weight Body temperature Heart rate Oxygen saturation Oxygen saturation in Arterial blood by Pulse oximetry Systolic blood pressure Diastolic blood pressure Provider Name and Address Organization Details Last Updated DateTime 4 159.39 cm 35.1 kg/m2 20857.9 g 97.7 [degF] 104 /min 97 % 97 % 126 mm[Hg] 70 mm[Hg] Poppy Connors MA [facility] [employer] [facility] 4 08:50:05 Date Recorded Body height Body mass index (BMI) Body weight Body temperature Heart rate Oxygen saturation Oxygen saturation in Arterial blood by Pulse oximetry Pain severity - 0-10 verbal numeric rating [Score] - Reported Systolic blood pressure Diastolic blood pressure Provider Name and Address Organization Details Last Updated DateTime 5 159.39 cm 35.2 kg/m2 03506.7 g 98.4 [degF] 83 /min 97 % 97 % 0 134 mm[Hg] 84 mm[Hg] Poppy Connors MA [facility] [employer] [facility] 5 11:13:07 Social History Question Answer Notes LastModified by Organization Details LastModified Time Tobacco Smoking Status Never Smoker Not Available [facility] 01/20/2023 22:40:54 Do You Have An Advance Directive? No [id number] Information not available 01/20/2023 What Is Your Level Of Alcohol Consumption? Occasional MIGRATION.030 [id number] Information not available 01/20/2023 What Is Your Level Of Caffeine Consumption? Occasional MIGRATION.030 [id number] Information not available 01/20/2023 How Much Tobacco Do You Chew? None MIGRATION.030 [id number] Information not available 01/20/2023 In The 14 Days Before Symptom Onset, Have You Had Close Contact With A Laboratory-confi rmed COVID-19 While That Case Was Ill? No MIGRATION.030 [id number] Information not available 01/20/2023 In The 14 Days Before Symptom Onset, Have You Had Close Contact With A Person Who Is Under Investigation For COVID-19 While That Person Was Ill? No MIGRATION.0301 [id number] Information not available 01/20/2023 Are You Currently Employed? Yes iris Information not available 06/21/2024 What Type Of Diet Are You Following? REGULAR Has PCOS-richard ches Her Food Intake MIGRATION.0301 [id number] Information not available 01/20/2023 Which Illicit Or Recreational Drugs Have You Used? None MIGRATION.030 [id number] Information not available 01/20/2023 Do You Or Have You Ever Used E-cigarettes Or Vape? 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 No Information not available 09/29/2023 Are There Any Guns Present In Your Home? Yes MIGRATION.030 [id number] Information not available 01/20/2023 Do You Use Insect Repellent Routinely? No Information not available 06/21/2024 Where Do You Live? SingleLevelHouse Information not available 09/29/2023 What Was The Date Of Your Most Recent Tobacco Screening? 12/20/2024 Information not available 12/20/2024 How Many Children Do You Have? 0 Information not available 12/20/2024 Do You Have Any Pets? Yes Information not available 09/29/2023 What Is Your Relationship Status? Information not available 06/21/2024 Do You Use Your Seat Belt Or Car Seat Routinely? Yes Information not available 06/21/2024 Do You Have Smoke And Carbon Monoxide Detectors In Your Home? Yes Information not available 09/29/2023 Are You Passively Exposed To Smoke? No MIGRATION.030 [id number] Information not available 01/20/2023 Do You Or Have You Ever Used Smokeless Tobacco? Never Used Smokeless Tobacco MIGRATION.030 [id number] Information not available 01/20/2023 Are There Any Smokers In Your House? No Information not available 09/29/2023 How Much Tobacco Do You Smoke? No MIGRATION.030 [id number] Information not available 01/20/2023 Do You Feel Stressed (tense, Restless, Nervous, Or Anxious, Or Unable To Sleep At Night)? [id number] Information not available 06/21/2024 Do You Use Any Illicit Or Recreational Drugs? No Information not available 09/29/2023 Do You Use Sunscreen Routinely? Yes MIGRATION.[id number] Information not available 01/20/2023 How Many Years Have You Smoked Tobacco? 0 MIGRATION.[id number] Information not available 01/20/2023 Have You Recently Traveled Abroad? No [email or web address] Information not available 03/24/2023 Do You Have Any Dietary Restrictions? No Information not available 06/21/2024 Sex: Unknown Functional Status Question Answer Note LastModified by Organizat ion Details LastModified Time What is your exercise level? Occasional [id number] Information not available 01/20/2023 Mental Status None recorded. Family History Relationship Description Onset Age of this Age Resolved Age Notes LastModified by Organization Details LastModified Time Unspecified Relation Hypertensive disorder either mom or dad has it, patien t can't recall MIGRATION.804 [id number] Not available 01/20/2023 22:41:11 Medical History Condition Response BLINDNESS N NERVE DISEASE N RHEUMATIC FEVER N BLADDER PROBLEMS N KIDNEY STONES N MRSA N OTHER # 1 Y POLIO N LUNG DISEASE/DISORDER N RADIATION / CHEMOTHERAPY N COPD N Other # 2 N BLOOD DISEASES N SURGERY N EAR OR HEARING PROBLEMS N MUMPS N BOWEL PROBLEMS N DEPRESSION (INCLUDING POST ) N STROKE/TIA N ULCERS N BENIGN PROSTATIC HYPERPLASIA N MEASLES N MYOCARDIAL INFARCTION N OBESITY N GERD/NAUSEA N ANEURYSM N URINARY/BLADDER/KIDNEY PROBLEMS N CORONARY ARTERY DISEASE (CAD) N ADDICTION CONCERNS N Impotence N ENDOMETRIOSIS N USE OF BLOOD THINNERS N SKIN PROBLEMS N GASTROINTESTINAL DISORDER N PERIPHERAL VASCULAR DISEASE N MUSCLE,JOINT OR BONE PROBLEMS N GASTROINTESTINAL BLEEDING N BLOOD CLOTS N ASTHMA N CATARACTS N ERECTILE DYSFUNCTION N VARICOSITIES N GI PROBLEMS N Low Testosterone N INFERTILITY N AIDS/HIV N CHEMOTHERAPY / RADIATION N LIVER DISEASE N MALE HYPOGONADISM N HYPERTENSION N Deficiency N ANXIETY DISORDER N BLOOD TRANSFUSION N ANEMIA/BLOOD DISORDER N CHRONIC EAR INFECTIONS N BRONCHITIS N TUBERCULOSIS N GLAUCOMA N FOOT PROBLEM N DIVERTICULITIS N SLEEP APNEA N CHICKENPOX N INFECTIOUS DISEASE N PROSTATE N HEART ARRHYTHMIA N INSOMNIA N HIGH CHOLESTEROL / HYPERLIPIDEMIA N HYPERTHYROIDISM N EYE PROBLEMS N NEUROLOGICAL PROBLEMS N EDEMA N CHRONIC PAIN SYNDROME N HYPOTHYROIDISM N CONSTIPATION N CAROTID BLOCKAGE N BACK / NECK PROBLEMS N HAVE YOU BEEN HOSPITALIZED OR SEEN IN [facility] IN THE PAST YEAR ? N ATHEROSCLEROSIS N BREAST PROBLEMS N DIALYSIS N ECZEMA N OSTEOPOROSIS N ARTHRITIS N APPENDICITIS N DIABETES, TYPE N BAD TEETH N ENT N HEARTBURN / REFLUX N AFIB N AUTISM SPECTRUM DISORDER (ASD) N HEPATITIS / LIVER DISEASE N GOUT N SLEEP DISORDER N ALZHEIMER'S DISEASE N Brain Problems N HERPES N DEMENTIA N SEIZURES/EPILEPSY N HEADACHES/MIGRAINES N VASCULAR DISEASE N PACEMAKER N Blood Disorder N DIZZINESS N KIDNEY DISEASE N HEART DISEASE/HEART PROBLEMS N MULTIPLE SCLEROSIS N CARDIAC ARRHYTHMIA N CANCER: SPECIFY N Gall Stones N ATRIAL FIBRILLATION N PULMONARY EMBOLISM N AUTOIMMUNE DISEASE N Gynecological History Statement/Question Response How many live births 0 Date of Last Pap Current Control Method None Date of Last Mammogram Date of LMP 12/07/2024 Obstetrics History GPAL:G 0 P 0 0 0 0 Type Value Multiple Births 0 Full Term 0 Induced 0 Spontaneous 0 Premature 0 Living 0 Ectopics 0 Total 0 Immunizations Vaccine Type Date Status Note Provider Nam e and Address Organization Details Recorded Time Tdap 04/09/2022 completed Not Available [facility] 01/20/2023 22:42:47 Past Encounters Encounter ID Performer Location Encounter Start Date Encounter Closed Date Diagnosis/Indication Diagnosis SNOMED-CT Code Diagnosis ICD10 Code Diagnosis Note [id number] [facility] [address] [address] 03/07/2021 00:00:00 03/07/2021 13:46:51 [id number] [facility] [address] [address] 03/18/2021 00:00:00 03/18/2021 11:48:40 [id number] [facility] [place] [address] 06/04/2021 00:00:00 06/04/2021 19:39:51 [id number] [facility] [address] [address] 04/09/2022 00:00:00 04/09/2022 14:13:07 [id number] MISSAEL Mccall [facility] [address] [place] [address] 03/24/2023 11:09:05 03/24/2023 11:46:26 Adult health examination 291441052 Z00.01 Type 2 tiarra betes mellitus without complication 644675147 E11.9 hasn't been on meds since bariatric surgery- may need to restart pending labswas previously on Trulicity Cholesterol screening 27 [id number] Z13.220 Weight gain 3304606 R63. 5 Depression screening 171 135483 Z13.31 Obesity 004029865 E66.9 recommend healthy, well balanced mealsfocus on lean meats, fresh vegetables , fresh fruits, whole grainsredu ce fast/proce ssed foods or eating out to no more than 1-2 times per weekaim to get 30 min of exercise most days of the week- walking is a great choicealso recommend resistance training 2-3 times per week Stomach cramps [id number] R10.9 she declines any work up todayshe can try a probiotic/ adding a few yogurts a dayshe will call us back in 1-2 weeks with updateER precaution s Vitamin D deficiency 347 62025 E55.9 check labs Iron deficiency 74369791 E61.1 check labs Vitamin B1 2 deficiency (non anemic) 81612867 E53.8 check labs [id number] Humaira Peng, BUSINESS MANAGEMENT MANAGER-C S_G Internal Med Florina tinoco [address] [place] [address] [facility] [place] [address] 09/29/2023 10:41:58 09/29/2023 11:10:24 Type 2 diabetes mellitus without complication 153747269 E11.9 increase Mounjaro pt is aware of side effects, risks, benefitspt denies any personal or family history of MEN II or MTC, denies and personal history of pancreatit ispt knows to call the office if any severe n/v or abdominal pain Cholesterol screening 27 8515062 Z13.220 Obesity 198453310 E66.9 recommend healthy, well balanced mealsfocus on lean meats, fresh vegetables , fresh fruits, whole grainsredu ce fast/proce ssed foods or eating out to no more than 1-2 times per weekaim to get 30 min of exercise most days of the week- walking is a great choicealso recommend resistance training 2-3 times per week Vitamin D deficiency 347 29800 E55.9 check labs Iron deficiency 18604050 E61.1 check labs Vitamin B1 2 deficiency (non anemic) 91871316 E53.8 check labs Chronic sinusitis 105680 00 J32.9 get appt with ENT Breast lump 73432349 N63 .0 patient is calling [facility] today to get appt [id number] Terra Jiménez APRN [facility] Internal Med [facility] [address] [place] [address] , [place] [address] 06/21/2024 08:41:38 06/21/2024 09:18:18 Insulin resistance 880898052 E88.819 Type 2 tiarra betes mellitus without complication 343252332 E11.9 Vitamin B1 2 deficiency (non anemic) 29144192 E53.8 Vitamin D deficiency 347 74759 E55.9 Screening mammography 24 637100 Z12.31 Screening for malignant neoplasm of cervix 903768683 Z12.4 Hepatitis C screening 41 0774163 Z11.59 [id number] Terra Jiménez APRN [facility] Primary Care [facility] [address] [facility] [address] [place] [address] 12/20/2024 11:06:49 12/20/2024 11:41:16 Type 2 diabetes mellitus without complication 267132629 E11.9 Fatigue 68570845 R53.83 Health Concerns Section Related Observation LastModified by Organization Detai ls LastModified Time None Recorded Concern Status LastModified by Organization Details LastModified Time None Recorded Advance Directives Directive N: Payers Encounter Date Sequence Insurance Name Policy Number Policy Gómez Covered Member ID Gómez Member ID Guarantor Name 03/24/2023 1 [facility] [employer]AN MANAGEMENT - [facility] [id number] Fly Payne [id number] Nelida Payne 09/29/2023 1 [facility] [id number] Fly Payne [id number] Nelida Payne 06/21/2024 1 [facility] [id number] Fly Payne [id number] Nelida Payne 12/20/2024 1 [facility] [id number] Fly Cordova [id number] Nelida Payne Notes Date Note Type Note Provider Name and Address Organization Details Recorded Time 03/24/2023 text/html Nelida yoder s today for follow-up. She is also due for her annual wellness exam. She was seen in urgent care a few weeks ago and was diagnosed with pneumonia. She finished her course azithromycin and Augmentin. She is feeling much better. We did repeat her chest x-ray which was negative for anything acute. The pneumonia has now resolved. She reports she has been having a little bit of stomach upset and cramping since being on the antibiotics. Today she is not having any stomach pain at all. He had a few episodes of diarrhea but those seem to have resolved. Denies any nausea or vomiting. Denies any blood in the stool or dark tarry stools. 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 She gained about 20 lb. She has not been on her diabetes medications since her bariatric surgery. She is having some difficulty getting this weight off. She was previously on Trulicity, but stopped that when she had her bariatric surgery. She reports stress levels are now much better. She is due for labs. Humaira Peng, BUSINESS MANAGEMENT MANAGER-C [address] [facility], [place], [address], [facility] [employer] [facility] 03/24/2023 13:13:39 09/29/2023 text/html Nelida yoder s today for follow-up. She reports she feels like the 5 mg Mounjaro has been working well, however the past month or so she feels like she has been having more issues with portion control and cravings. She is requesting go up on the dose. She denies any side effects with the medication. She has not really been checking her blood sugars at home. She complains today of some fatigue. She does have history of bariatric surgery but has not been taking any of her supplements. She has been low on iron, B12, and vitamin-D in the past. She complains today of some chronic sinus issues. She feels like her left side is always blocks and sometimes feels like her sense of smell is off. She hasn't seen ENT. She also reports she has a lump in the right breast, she is planning on calling her oil expeller operator today to get an appointment for this. She denies any pain or redness. Humaira Peng, CYNTHIA-C [address], [place], [address], [employer] [facility] [email or web address] 09/29/2023 13:11:56 06/21/2024 text/html Nelida present s today to establish care. She was previously on Mounjaro for insulin resistance. She has been off of it for a few months and has been having issues. 09/29/2023Nelida presents today for follow-up. She reports she feels like the 5 mg Mounjaro has been working well, however the past month or so she feels like she has been having more issues with portion control and cravings. She is requesting go up on the dose. She denies any side effects with the medication. She has not really been checking her blood sugars at home. She complains today of some fatigue. She does have history of bariatric surgery but has not been taking any of her supplements. She has been low on iron, B12, and vitamin-D in the past. She complains today of some chronic sinus issues. She feels like her left side is always blocks and sometimes feels like her sense of smell is off. She hasn't seen ENT. She also reports she has a lump in the right breast, she is planning on calling her oil expeller operator today to get an appointment for this. She denies any pain or redness. Terra Jiménez APRN [address], [place], [address], [employer] 06/21/2024 09:14:30 12/20/2024 text/html Nelida present s today for 6 month follow up. She states that she is having increased fatigue during the afternoon and she states that her weight has been going up. She states that she has been starting to cut out her sugary drinks this week. She states that her eating is not bad. 06/21/2024Nelida presents today to establish care. She was previously on Mounjaro for insulin resistance. She has been off of it for a few months and has been having issues. Terra Jiménez APRN [address], [place], [address], [employer] [facility] 12/20/2024 11:36:09 OBGyn Episode No OBEpisode recorded.
--- OUTSIDE RECORDS SUMMARY | 2024-12-31 15:56 | XMS_ITS | Clinical Summary ---
Author Organization [facility] Address [address] [place] [address] Care Team Providers Care Food Order Expediter Name Role Phone Unavailable Primary Care Provider Unavailabl e Source Comments [facility],non-owned Affiliates and Associated Physician Practices is amultiple site organization consisting of ambulatory clinics and hospital sitesin [place], [place], [place] and [place]. This disclosure is being madepursuant to the Care Everywhere program and may not contain all information available regarding this patient. Last updated 18.[facility] [employer] Allergies No known active allergies Medications * Be aware that medications may not be up to date on this document. Alwaysverify current medications with the patient. Medication Sig Dispensed Refills Start Date End Date Status ergocalciferol (DRISDOL) 1.25 MG (00088 UT) capsule ergocalciferol (vitamin D2) 1,250 mcg (50,000 unit) capsule Active Cholecalciferol 1.25 MG (78840 UT) 03/25/2021 Active albuterol HFA (PROVENTIL;VENTOLI N;PROAIR) 108 (90 Base) MCG/ACT inhaler Inhale 2 puffs by mouth every 6 hours as needed Active Cyanocobalamin (VITAMIN B12) 100 MCG Vitamin B12 Active Social History Tobacco Use Types Packs/Day Years Used Date Smoking Tobacco: Never Assessed Sex and Gender Information Value Date Recorded Sex Assigned at Not on file Gender Identity Not on file Sexual Orientation Not on file Last Filed Vital Signs Vital Sign Reading Time Taken Comments Blood Pressure 128/82 07/15/2021 10:04 AM CDT Pulse 88 07/15/2021 10:04 AM CDT Temperature 36.8 C (98.2 F) 07/15/2021 10:04 AM CDT Respiratory Rate 16 07/15/2021 10:04 AM CDT Oxygen Saturation 96% 07/15/2021 10:04 AM CDT Inhaled Oxygen Concentration - - Weight 91.2 kg (201 lb) 07/15/2021 10:04 AM CDT Height 160 cm (5' 3 ) 07/15/2021 10:04 AM CDT Body Mass Index 35.61 07/15/2021 10:04 AM CDT Plan of Treatment Health Maintenance Due Date Last Done Comments LIPID TESTING 1983 MAMMOGRAM 1983 PAP SMEAR 1983 HIV SCREENING 1998 HEPATITIS C SCREENING 10/09/2001 DTAP/TDAP/TD VACCINES (1 - Tdap) 2002 HEPATITIS B VACCINE (1 of 3 - 19+ 3-dose series) 2002 COVID-19 VACCINE (1 - 2023-2 5 season) 2024 INFLUENZA VACCINE (#1) 2024 DEPRESSION SCREENING 11/22/2024 ZOSTER VACCINE (1 of 2) 2033 HIB VACCINE Aged Out No longer eligi ble based on patient's age to complete this topic HPV VACCINE Aged Out No longer eligi ble based on patient's age to complete this topic MENINGOCOCCAL (Group B) VACCINE Aged Out No longer eligible based on patient's age to complete this topic MENINGOCOCCAL VACCINE Aged Out No geovany lucila eligible based on patient's age to complete this topic PNEUMOCOCCAL VACCINE Aged Out No long er eligible based on patient's age to complete this topic
--- OUTSIDE RECORDS SUMMARY | 2024-12-31 15:56 | XMS_ITS | Referral Summary ---
Author Organization [facility] Address [address] [place] [address] Care Team Providers Care Furniture Finisher Helper Name Role Phone Unavailable Primary Care Provider Unavailabl e Source Comments [facility],non-owned Affiliates and Associated Physician Practices is amultiple site organization consisting of ambulatory clinics and hospital sitesin [place], [place], [place] and [place]. This disclosure is being madepursuant to the Care Everywhere program and may not contain all information available regarding this patient. Last updated 18.[facility] [employer] Allergies No known active allergies Medications * Be aware that medications may not be up to date on this document. Alwaysverify current medications with the patient. Medication Sig Dispensed Refills Start Date End Date Status ergocalciferol (DRISDOL) 1.25 MG (59702 UT) capsule ergocalciferol (vitamin D2) 1,250 mcg (50,000 unit) capsule Active Cholecalciferol 1.25 MG (74449 UT) 03/25/2021 Active albuterol HFA (PROVENTIL;VENTOLI N;PROAIR) [...] 07/15/2021 10:04 AM CDT Plan of Treatment Not on file
--- OUTSIDE RECORDS SUMMARY | 2024-12-31 15:56 | XMS_ITS | Patient Health Summary ---
Author Organization [facility] Address [address] [place] [address] Care Team Providers Care Claims Counsel Name Role Phone Unavailable Primary Care Provider Unavailabl e Note from [facility],non-owned Affiliates and Associated Physician Practices is amultiple site organization consisting of ambulatory clinics and hospital sitesin [place], [place], [place] and [place]. This disclosure is being madepursuant to the Care Everywhere program and may not contain all information available regarding this patient. Last updated 18.[facility] Allergies No known active allergies Medications * Be aware that medications may not be up to date on this document. Alwaysverify current medications with the patient. * ergocalciferol (DRISDOL) 1.25 MG (12098 UT) capsule ergocalciferol (vitamin D2) 1,250 mcg (50,000 unit) capsule * Cholecalciferol 1.25 MG (44591 UT)(Started 03/25/2021) * albuterol HFA (PROVENTIL;VENTOLIN;PROAIR) 108 (90 Base) MCG/ACT inhaler Inhale 2 puffs by mouth every 6 hours as needed * Cyanocobalamin (VITAMIN B12) 100 MCG Vitamin B12 Social History Tobacco Use Types Packs/Day Years [...]
--- OUTSIDE RECORDS SUMMARY | 2024-12-31 15:56 | XMS_ITS | CONTINUITY OF CARE DOCUMENT ---
Author Name iza, pravinjames Address Unknown Organization [facility] Address [address] [place] [address] Phone [phone] Care Team Providers Care Volunteer Manager Name Role Phone Kevin BESS, Mary Unavailable EDGARDO BRAN Unavailable [phone] HOPEDGARDO COLES Unavailable [phone] PROBLEMS Condition Status Date Provider Notes Screening completed - Drake Glover Preoperative cardiovascular evaluation for gastric bypass active Drake Glover Elevated blood pressure with out diagnosis of hypertension active Drake Glover SARS-associated coronavirus, 04/2020, had penumonia, was on O2 for 3 weeks active Drake Glover Diabetes mellitus, type 2 active Drake aguilar Obesity active Drake Glover ENCOUNTERS Date Type Provider Location Encounter Diag nosis - In-person encounter Office Visit Mary Brown MD [place] [facility] ScreeningObesity - In-person encounter Office Visit Mary Brown MD [place] [facility] Preoperative cardiovascular evaluation for gastric bypassElevated blood pressure without diagnosis of hypertensionSARS-associa nicolas coronavirus, 04/2020, had penumonia, was on O2 for 3 weeksDiabetes mellitus, type 2 VITAL SIGNS Date Observation Value Provider Body Mass Index (Ratio) 42.69 kg/m2 Ang Glover blood pressure, cuff size regular Cy mario alberto Leblanc blood pressure, diastolic 90 mm[Hg] Kamar Leblanc blood pressure, systolic 144 mm[Hg] Mayte Leblanc pulse rate 94 /min Zandra mahajan oxygen saturation, oximetry 96 % Zandra Leblanc respiratory rate E&M 16 /min Zandra Leblanc weight E&M 241 [lb_av] Zandra mahajan height E&M 63 [in_i] Zandra mahajan Body Mass Index (Ratio) 41.62 kg/m2 Ang Glover blood pressure, cuff size large Ke renetta Rodas blood pressure, diastolic 86 mm[Hg] Ke rri Clark blood pressure, systolic 150 mm[Hg] Florencia Rodas oxygen saturation, oximetry 97 % Janell Rodas respiratory rate E&M 16 /min Janell ayala pulse rate 87 /min Janell white weight E&M 235 [lb_av] Janell Sams lder height E&M 63 [in_i] Janell pyleer ALLERGIES No Known Drug Allergies HISTORY OF MEDICATION USE Medication Status Instructions Dates Provider Indications Com ments VITAMIN D3 1.25 MG (21174 UT) ORAL CAPSULE active one capsule by mouth weekly Janell Rodas TRULICITY 0.75 MG/0.5ML SUBCUTANEOUS SOLUTION PEN-INJECTOR active inject 0.75mg subcutaneously one time per week Reduces cardiovascular and heart failure hospitalizations Janell Rodas SOCIAL HISTORY Date Observation Value Provider social history E&M S moking History: P niharika has never smoked. Drake Glover social history reviewed E&M revi ewed - no changes required Drake Glover smoking status Never smoker Zandra Taylorguillermo ell number of grandchildren Mary Glover social history E&M S moking History: Jas bundy has never smoked. Drake Glover social history reviewed E&M revi ewed - no changes required Drake Glover smoking status Never smoker Janell leunger INSURANCE PROVIDERS Payer name Policy type / Coverage type Rakesh red constitution party ID AETNA [facility] [id number] ADVANCE DIRECTIVES Name Date DISCUSSED - NO DECISION MADE TREATMENT PLAN Date Name Performer Cardiology follow up Drake Glover Cardiology follow up : Yanely gayle for gastric sleeve surgery. Drake Glover Cardiology follow up Drake Glover Cardiology New patient Drake Nac ht Cardiology New patient Drake Nac ht Cardiology New patient Drake Nac ht Cardiology New patient Drake Nac ht Date Name CXR- PA/Lat Stress Exercise Card iolite Complete Echo HISTORY OF PROCEDURES Procedure Date Procedure Name Provider Procedure Notes S tatus EKG Mary Brown MD completed
--- OUTSIDE RECORDS SUMMARY | 2024-12-31 15:56 | XMS_ITS | Encounter Summary ---
Author Organization [facility] Address [address] [place] [address] Care Team Providers Care Underwear Finisher Name Role Phone Shannan, External Provider Primary Care Provider Un available Encounter Details Date Type Department Care Team (Late st Contact Info) Description 05/02/2021 Abstract [facility] Non Integrated Provider [address] [place] [address] Austyn Ordonez MD [address] [place] [address] Social History Tobacco Use Types Packs/Day Years Used Date Smoking Tobacco: Never Assessed Comments Unknown Sex and Gender Information Value Date Recorded Sex Assigned at Not on file Legal Sex Female 10:02 AM CDT Gender Identity Not on file Sexual Orientation Not on file documented as of this encounter Plan of Treatment Not on file documented as of this encounter Visit Diagnoses Not on filedocumented in this encounter Care Teams Underwear Finisher Relationship Specialty Start Date End Date Shannan External Provider PCP - General 05/20/21 documented as of this encounter
--- OUTSIDE RECORDS SUMMARY | 2024-12-31 15:56 | XMS_ITS | Clinical Summary ---
Author Organization [facility] Address [address] [facility] [address] [address] Phone Care Team Providers Care Senior Analyst Programmer Name Role Phone Shannan, External Provider Primary Care Provider Un available Allergies No known active allergies Medications albuterol HFA 90 mcg inhaler Take 2 Puffs by inhalation every 6 hours as needed for Shortness of Breath. Active HYDROcodone-yue taminophen (HYCET) 7.5-325 mg/15 mL SolutionIndicat ions:Preop testing Take 15 mL by mouth every 6 hours as needed for severe pain. Max Daily Amount: 60 mL 300 mL 05/21/2021 12:19 PM CDT 1 Active ondansetron (Zofran ODT) 4 mg Tablet, Rapid Dissolve Place 1 Tablet (4 mg) under tongue every 6 hours as needed for Nausea/Vomiting . 28 Tablet 05/21/2021 12:19 PM CDT 1 Active Active Problems Problem Noted Date Diagnosed Date Type 2 diabetes mellitus wit hout complication, without long-term current use of insulin 05/20/2021 Mild intermittent asthma without complication Type 2 diabetes mellitus, wi thout long-term current use of insulin 05/20/2021 Social History Tobacco Use Types Packs/Day Years Used Date Smoking Tobacco: Never Smokeless Tobacco: Never Alcohol Use Standard Drinks/Week Comments Not Currently 0 (1 standard drink = 0.6 oz pur e alcohol) Comments No Sex and Gender Information Value Date Recorded Sex Assigned at Not on file Legal Sex Female 10:02 AM CDT Gender Identity Not on file Sexual Orientation Not on file Last Filed Vital Signs Vital Sign Reading Time Taken Comments Blood Pressure 132/89 05/21/2021 12:11 PM CDT Pulse 75 05/21/2021 12:11 PM CDT Temperature 37 C (98.6 F) 05/21/2021 12:11 PM CDT Respiratory Rate 20 05/21/2021 12:1 1 PM CDT Oxygen Saturation 97% 05/21/2021 12: 11 PM CDT Inhaled Oxygen Concentration - - Weight 100.8 kg (222 lb 3.2 oz) 05/21/2021 4:41 AM CDT Height 160 cm (5' 3 ) 05/20/2021 11:28 AM CDT Body Mass Index 39.36 05/20/2021 11:28 AM CDT Plan of Treatment Health Maintenance Due Date Last Done Comments PNEUMOCOCCAL VACCINE 0-64 YE ARS (1 of 2 - PCV) 1989 DIABETES ANNUAL FOOT EXAM 2001 DIABETES ANNUAL RETINAL EXAM 2001 DIABETES HBA1C Q 6 MONTHS 2001 DIABETES MICROALBUMIN ANNUAL SCREEN 2001 LDL CHOLESTEROL ANNUAL 2001 DTAP/TDAP/TD VACCINES (1 - Tdap) 2002 HEPATITIS B VACCINES (1 of 3 - 19+ 3-dose series) 2002 CERVICAL CANCER SCREENING 2013 BREAST CANCER SCREENING 2023 INFLUENZA VACCINE (#1) 2024 HPV VACCINES Aged Out No longer eligi ble based on patient's age to complete this topic Medical Devices Implanted Type Area Lap Maker Device Identifier Shelf Expiration Date Model / Serial / Lot Seamguard Endogia 60 Blk [id number] - [id number] Implanted:Qt y: 1 on 05/20/2021 by Austyn Ordonez MD at [facility] Biological N/A: Stomach [employer] [id number] 12/10/2023 12BSGTRI 60B / / [id number] Seamguard Endogia 60 Prpl [id number] - [id number] Implanted:Qt y: 1 on 05/20/2021 by Austyn Ordonez MD at [facility] Biological N/A: Stomach [employer] [id number] 01/30/2024 12BSGTRI 60P / / [id number] Seamguard Endogia 60 Blk [id number] - [id number] Implanted:Qt y: 1 on 05/20/2021 by Austyn Ordonez MD at [facility] Biological N/A: Stomach [employer] [id number] 12/10/2023 12BSGTRI 60B / / [id number] Seamguard Endogia 60 Prpl [id number] - [id number] Implanted:Qt y: 1 on 05/20/2021 by Austyn Ordonez MD at [facility] Biological N/A: Stomach [employer] [id number] 01/30/2024 12BSGTRI 60P / / [id number] Insurance RX [facility] Commercial RX [employer] (INTERNAL) [facility] Internal Plans Advance Directives For more information, please contact: [phone] * Full Code (Latest Code Status on File) Date Activated Date Inactivated Comments 05/20/2021 12:49 PM 05/21/2021 5:15 PM * Full Code Date Activated Date Inactivated Comments 05/20/2021 11:15 AM 05/20/2021 12:49 PM Care Teams Senior Analyst Programmer Relationship Specialty Start Date End Date Yousif Campbell Provider PCP - General 05/20/21
--- OUTSIDE RECORDS SUMMARY | 2024-12-31 15:57 | XMS_ITS | CONTINUITY OF CARE DOCUMENT ---
Author Name iza, pravinjames Address Unknown Organization [facility] Address [address] [place] [address] Phone [phone] Care Team Providers Care Agricultural Scientist Name Role Phone Kevin BESS, Mary Unavailable [phone] EDGARDO BRAN Unavailable [phone] HOPEDGARDO COLES Unavailable [phone] PROBLEMS Condition Status Date Provider Notes Screening [...] In-person encounter Office Visit Mary Brown MD [place] [facility] ScreeningObesity - In-person encounter Office Visit Mary Brown MD [place] [facility] Preoperative cardiovascular evaluation for gastric bypassElevated [...] [lb_av] Zandra mahajan height E&M 63 [in_i] Zanrda mahajan Body Mass Index (Ratio) 41.62 kg/m2 [...] Indications Com ments VITAMIN D3 1.25 MG (41880 UT) ORAL CAPSULE active one capsule by [...] Policy type / Coverage type Rakesh red alliance party ID AETNA [facility] [id number] ADVANCE DIRECTIVES Name Date DISCUSSED - NO [...]
[2024-12-31 17:02] VITALS: BP 127/87; PULSE 94; RESP 18; TEMP 37.3; O2SAT 100
--- NOTE | 2024-12-31 17:36 | ED_ITS ---
HPI - General Adult General Chief complaint: Upper Respiratory Infection Stated complaint: pneumonia Time Seen by Provider: 12/31/24 17:36 Source: patient Mode of arrival: ambulatory Limitations: no limitations History of Present Illness HPI narrative: Here with concern for pneumoniaKayla Krause is a 39-year-old female who reports on she flew home from vacation and developed congestion, increased drainage, and cough. She reports on Wednesday she felt sore with chest tightness. She reports a sore back and low fever. She also reports feeling tired. She reports a history of pneumonia in the past with similar symptoms. She reports with prior pneumonia that her lung sounds were clear. All systems reviewed and normal except as noted in HPI. Related Data Home Medications ?Medication ?Instructions ?Recorded ?Confirmed ?Last Taken ?Type tirzepatide 7.5 mg/0.5 mL mg subcut 12/31/24 Unknown History subcutaneous pen injector (Mounjaro) Allergies Allergy/AdvReac Type Severity Reaction Status Date / Time No Known Allergies Allergy Verified 12/31/24 17:40 Review of Systems Review of Systems: CONSTITUTIONAL: Denies fever, chills, or sweats. reports elevated temperature of 99?. EYES: Denies visual changes, redness, or discharge. ENT: reports rhinorrhea and congestion. denies sore throat or otalgia. CARDIOVASCULAR: Denies chest pain, palpitations, or edema. RESPIRATORY: Reports cough. Denies dyspnea. GASTROINTESTINAL: Denies abdominal pain, nausea, vomiting, or diarrhea. GENITOURINARY: Denies dysuria or hematuria. SKIN: Denies rash or itching. MUSCULOSKELETAL:Reports sore back. Denies back pain, joint pain, or myalgia. NEUROLOGIC: Denies headache, numbness, or weakness. PSYCHIATRIC: Denies anxiety or depression. All other systems reviewed are negative, except as documented in HPI. [facility] Past Medical History Medical History (Updated 12/31/24 @ 18:11 by Leelee Young APRN) Polycystic kidney disease Asthma Surgical History Surgical History [place] teeth extracted Family History Family History Father Hypertension Mother Hypertension Grandparent Family history of type 2 diabetes mellitus Cancer Other Family history of malignant neoplasm of breast Social History Social History Social History: Mrs. Payne lives at home with her Facundo Payne. They live in [place], [place]. 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 She has a hx of infrequent alcohol use but has not consumed alcohol this year. She does not use any drugs. She wishes to be a full code and she has designated her Facundo Payne as her surrogate decision maker. Smoking status: Never smoker Second hand tobacco smoke exposure: No Alcohol intake: current Drinks per week: 0 Alcohol use details: She reports 1 drink/month previously but has not consumed alcohol in 2019. 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 Please see nursing chart for further information. There is no relevant family history pertinent to the presenting complaint. Exam Narrative: GENERAL: This is a well-nourished, well-developed patient, in no apparent distress. HEAD: normocephalic, atraumatic. EYES: Sclera clear/white. Vision is grossly intact. EARS: External ears normal, auditory canals clear and without drainage, TMs normal without perforation. Hearing grossly intact. NOSE: External nose normal with no obvious nasal discharge, nares without redness, no rhinorrhea. THROAT: Mucous membranes moist, posterior pharynx erythematous. NECK: Neck supple, non-tender without lymphadenopathy. CARDIOVASCULAR: Regular rate and rhythm without murmurs, gallops, or rubs. RESPIRATORY: Clear to auscultation. Breath sounds equal bilaterally. No wheezes, rales, or rhonchi. cough. SKIN: warm, Dry, intact with no suspicious lesions or rash, good texture and turgor. NEURO: awake, alert, and oriented to person, place and time. EXTREMITIES: No joint tenderness, effusion, or edema noted. Course Course Emergency Course: Patient is aware of diagnosis, understands and agrees to treatment plan. Anticipatory guidance given. Patient agrees to follow-up as directed and is aware of reasons to seek care at the emergency department. This report may have been done utilizing a voice recognition system. Attempts have been made to correct errors. However, there may be uncorrected grammatical, spelling, and recognition errors present. Level of Care: Express Care Visit Vital Signs Vital signs: Vital Signs Temperature 37.3 C 12/31/24 17:02 Pulse Rate 94 12/31/24 17:02 Respiratory Rate 18 12/31/24 17:02 Blood Pressure 127/87 12/31/24 17:02 Pulse Oximetry 100 12/31/24 17:02 Oxygen Delivery Room Air 12/31/24 17:02 Temperature 37.3 C 12/31/24 17:02 Pulse Rate 94 12/31/24 17:02 Respiratory Rate 18 12/31/24 17:02 Blood Pressure 127/87 12/31/24 17:02 Pulse Oximetry 100 12/31/24 17:02 Oxygen Delivery Room Air 12/31/24 17:02 Reviewed. Medical Decision Making MDM Narrative Medical decision making narrative: Results of chest x-ray reviewed with patient. Reviewed past note from August and past x-ray when patient had similar symptoms. Compared today's chest x- ray with past x-ray. Treated for bronchitis today. Discussed physical exam findings is patient and reviewed prescriptions. Advised supportive measures and reviewed signs symptoms for patient to the ER. The patient is in no acute distress and stable. Patient is appropriate for outpatient treatment and follow-up. Differential Diagnosis Differential Diagnosis: URI versus pneumonia versus bronchitis versus viral infection Vital Signs Vital Signs: Vital Signs Temperature 37.3 C 12/31/24 17:02 Pulse Rate 94 12/31/24 17:02 Respiratory Rate 18 12/31/24 17:02 Blood Pressure 127/87 12/31/24 17:02 Pulse Oximetry 100 12/31/24 17:02 Oxygen Delivery Room Air 12/31/24 17:02 Temperature 37.3 C 12/31/24 17:02 Pulse Rate 94 12/31/24 17:02 Respiratory Rate 18 12/31/24 17:02 Blood Pressure 127/87 12/31/24 17:02 Pulse Oximetry 100 12/31/24 17:02 Oxygen Delivery Room Air 12/31/24 17:02 reviewed Imaging Data My impression: agree with Radiology Radiologist's impression: FINDINGS The cardiomediastinal silhouette is unremarkable. The lungs are clear. Visualized osseous structures and soft tissues are unremarkable. IMPRESSION: No focal infiltrate or effusion. Discharge Plan Discharge Clinical Impression: Bronchitis Patient Disposition: Home, Self-Care Condition: Stable Instructions: Antibiotic Form, Acute Bronchitis (ED) Patient Language: Slovak Prescriptions: New benzonatate 200 mg capsule 200 mg PO TID PRN (Reason: cough) Qty: 20 0RF doxycycline hyclate 100 mg capsule 100 mg PO BID Qty: 14 0RF methylprednisolone 4 mg tablets,dose pack See Rx Instructions .ROUTE .COMPLEX Qty: 21 0RF Rx Instructions: for 6 days No Action Mounjaro 7.5 mg/0.5 mL pen injector SUBCUT albuterol sulfate 90 mcg/actuation HFA aerosol inhaler 2 puff inhalation Q4-6H PRN (Reason: shortness of breath or wheezing) 30 Days Qty: 8.5 0RF Follow-up/Referrals: Jessy,Terra Munoz APRN [Primary Care Provider] - Time of Disposition: 18:13
== END 2024-12-31 18:10 | disposition home or self-care (01) ==
PROVIDERS: Emergency Provider Nurse Practitioner; PCP Nurse Practitioner Family
DX: J40 Bronchitis, not specified as acute or chronic (principal); J45.909 Unspecified asthma, uncomplicated; E28.2 Polycystic ovarian syndrome
CPT/HCPCS: 71046; 99213; G0463